=== PATIENT | female | born 1930 | race Caucasian/White ===

== ENCOUNTER 2018-12-27 20:25 | Inpatient (IN) ==
[2018-12-27 21:24] LABS: Hematocrit 42.9 % (35.3-44.9); Hemoglobin 14.1 g/dL (11.5-15.4); Mean Corpuscular HGB Conc 32.9 g/dL (31.6-35.5); Mean Corpuscular Hemoglobin 30.1 pg (28.0-33.3); Mean Corpuscular Volume 91.5 fL (83.0-100.0); Platelet Count 270 K/mcL (140-400); Red Blood Count 4.69 M/mcL (3.82-4.97); Red Cell Distribution Width 13.7 % (11.5-14.5)
[2018-12-27 21:43] LABS: Calcium 8.5 mg/dL (8.6-10.3); Potassium 4.2 mEq/L (3.5-5.1)
[2018-12-27] MEDS ORDERED: 0.9 % Sodium Chloride 500 ML IVC ONE ×2 (21:51→22:04)
--- NOTE | 2018-12-27 21:58 | Emergency Department Note ---
Disposition Clinical Impression: Dehydration, Weakness Disposition: Admitted As Inpatient Condition: Fair Time of Disposition: 22:26 General Adult HPI - General Chief complaint: ED Weakness Stated complaint: Weakness Time Seen by Provider: 12/27/18 20:55 Source: patient, family Limitations: no limitations Nursing Notes Reviewed: Yes Vital Signs Reviewed: Yes - History of Present Illness HPI Narrative: 88 yo female presents to the Emergency department with family with the complaint of increasing weakness over the past 5 weeks. She has a history of CHF with a defibrillator/pacemaker and takes levothyroxine. She has not been taking her medications for the past few days due to weakness. She denies chest pain but admits to shortness of breath. She denies fevers, abdominal pain, nausea, vomiting, and diarrhea. Pain Scale: 0 - Related Data Home Medications Medication Instructions Recorded Confirmed RX: Calcium Carbonate 500 mg PO DAILY 06/24/15 04/30/16 RX: Cholecalciferol (D-3) 5,000 unit PO DAILY 06/24/15 04/30/16 RX: Metoprolol XL (24 HR) Succ 12.5 mg PO DAILY 06/24/15 04/30/16 [Toprol XL] RX: Spironolactone 12.5 mg PO DAILY 06/24/15 04/30/16 RX: TraMADol [Ultram] 50 mg PO Q6HR PRN 06/24/15 04/30/16 RX: Warfarin [Coumadin] 1 tab PO 4XW 06/24/15 04/30/16 RX: Potassium Chloride 10 meq PO QPM 07/26/15 04/30/16 RX: Zinc Sulfate 220 mg PO QAM 07/26/15 04/30/16 RX: Bumetanide [Bumex] 1 mg PO 3XW 04/30/16 04/30/16 RX: Warfarin [Coumadin] 2 mg PO 3XW 04/30/16 04/30/16 Previous Rx's Medication Instructions Recorded RX: Bumetanide [Bumex] 0.5 mg PO 3XW #15 tablet 06/30/15 RX: Digoxin [Lanoxin] 0.125 mg PO QOD #15 tablet 06/30/15 RX: Isosorbide MONOnitrate (24 HR) 30 mg PO QPM #30 tab.er.24h 06/30/15 [Imdur] RX: Levothyroxine [Synthroid] 125 mcg PO 0630 #30 tablet 06/30/15 RX: Valsartan [Diovan] 40 mg PO DAILY #30 06/30/15 Allergies Allergy/AdvReac Type Severity Reaction Status Date / Time lisinopril Allergy Severe Swelling Verified 12/27/18 20:31 of Lip/Tongue/Throat Penicillins [PCN] Allergy Mild Itching Verified 12/27/18 20:31 egg Allergy Rash Verified 12/27/18 20:31 ciprofloxacin [From Cipro] AdvReac Mild Diarrhea Verified 12/27/18 20:31 milk AdvReac Mild Rash Verified 12/27/18 20:31 All systems ED: reviewed and negative except as stated. Review of Systems: As Per HPI Constitutional: Reports: weakness. Denies: fever, chills ENT ED: Denies: throat pain Cardiovascular: Reports: dyspnea on exertion. Denies: chest pain, palpitations, orthopnea, edema, syncope Respiratory: Reports: dyspnea. Denies: cough, wheezes Gastrointestinal: Denies: abdominal pain, nausea, vomiting, diarrhea Genitourinary: Denies: urgency, dysuria, frequency Musculoskeletal: Denies: back pain, neck pain Integumentary: Denies: rash Neurological: Reports: weakness. Denies: headache, numbness, paresthesias Endocrine: Reports: fatigue Past Medical History - Past Medical History Medical history: Reports: arthritis, atrial fibrillation, cardiomyopathy, CHF, coronary artery disease, DVT, GERD, hyperlipidemia, hypertension, osteoporosis, thyroid disease Surgical history: Reports: hip replacement, hysterectomy, pacemaker/AICD, other Psychiatric history: Reports: no psych history - Social History Smoking Status: Former smoker Smokeless Tobacco Status: No Alcohol use: Reports: none Drug use: Reports: none Physical Exam - General Limitations: no limitations General appearance: alert - Head Head exam: atraumatic, normocephalic - Eye Eye exam: Present: normal appearance, PERRL, EOMI - ENT ENT exam: mucous membranes dry - Neck Neck exam: Present: normal inspection. Absent: tenderness, lymphadenopathy - Chest Chest inspection: Present: normal inspection, symmetric chest wall rise. Absent: tenderness, rash - Respiratory Respiratory exam: Present: other (rhonchi heard in right lung landry) - Cardiovascular Cardiovascular exam: Present: regular rate, irregular rhythm - Abdominal Exam Abdominal exam: Present: soft, Non-Tender. Absent: distention, guarding, rebound, rigidity - Extremities Exam Extremities exam: Present: pedal edema (right leg>left. 2+ pitting edema) - Neurological Exam Neurological exam: Present: alert - Psychiatric Psychiatric exam: Present: flat affect - Skin Skin exam: Present: warm, dry, intact Course Vital Signs Temperature 97.4 F L 12/27/18 20:31 Pulse Rate 62 12/27/18 20:31 Respiratory Rate 17 12/27/18 20:31 Blood Pressure 128/79 12/27/18 20:31 O2 Sat by Pulse Oximetry 95 12/27/18 20:31 Temperature 97.4 F L 12/27/18 20:31 Pulse Rate 67 12/27/18 22:02 Respiratory Rate 16 12/27/18 22:02 Blood Pressure 126/61 12/27/18 22:02 O2 Sat by Pulse Oximetry 98 12/27/18 22:02 Oxygen Delivery Oxygen Delivery Room Air Medical Decision Making - MDM Narrative Medical decision making narrative: This patient presents with worsening weakness for the past 5 weeks. We will obtain labs, urinalysis, CXR, EKG and give a 500ml fluid bolus. 2225 - lab work shows evidence of dehydration and hypothyroidism. We will admit to the hospital for rehydration and further treatment of her weakness. Dr. Shirley has accepted the patient. - Medical Records Medical records reviewed: Yes I reviewed the patient's medical records. - Lab Data Lab results reviewed: Yes I reviewed the patient's lab results. Result diagrams: 12/27/18 21:15 12/27/18 21:15 Lab Results 12/27/18 12/27/18 12/27/18 Range/Units 21:15 21:15 21:43 WBC 17.1 H (4.3-11.1) K/mcL RBC 4.69 (3.82-4.97) M/mcL Hgb 14.1 (11.5-15.4) g/dL Hct 42.9 (35.3-44.9) % MCV 91.5 (83.0-100.0) fL MCH 30.1 (28.0-33.3) pg MCHC 32.9 (31.6-35.5) g/dL RDW 13.7 (11.5-14.5) % Plt Count 270 (140-400) K/mcL MPV 10.0 (9.4-12.4) fL PT 38.6 H (9.4-12.1) Seconds INR 3.4 Sodium 138 (136-145) mEq/L Potassium 4.2 (3.5-5.1) mEq/L Chloride 105 (98-107) mEq/L Carbon Dioxide 23 (23-29) mEq/L BUN 38 H (8-23) mg/dL Creatinine 1.72 H (0.60-1.20) mg/dL Est GFR ( Amer) 34 L (> 60) Est GFR (Non-Af Amer) 28 L (> 60) BUN/Creatinine Ratio 22 (6-26) Glucose 98 (70-105) mg/dL Calculated Osmolality 295 (280-300) Calcium 8.5 L (8.6-10.3) mg/dL TSH 8.755 H (0.340-5.600) mcIU/mL - Radiology Data Radiology results reviewed: Yes I reviewed the patient's radiology results. - EKG Data EKG #1 EKG attestation: Yes I reviewed and interpreted this EKG. EKG results narrative: EKG obtained at 2126 on 12/27/2018 HR 71 bpm, QRS duration 102, QT 332, QTc [address] any significant ST segment elevations or depressions. Unchanged when compared to previous EKG dated 04/30/2016 Attestation Statement - Attestation Attestation: DR Lockett note: Pt seen in conjunction w/ resident Dr Tina Stover; Please see her charting for complete documentation; I spent face to face time w/ the pt and agree w/ e pt's treatment and disposition; progressive generalized weakness for 3 days. No fever no pain no vomiting or diarrhea. Vital signs stable. Prior diuretics were given daily until a few days ago. Was able to Walk Today Due To the Weakness. bun, creatine noted; inr checked 2 days ago as well;
[2018-12-27 22:02] LABS: Thyroid Stimulating Hormone 8.755 mcIU/mL (0.340-5.600)
[2018-12-27 22:15] LABS: INR 3.4; Prothrombin Time 38.6 Seconds (9.4-12.1)
[2018-12-27] MEDS ORDERED: traMADol 50 MG TABLET PO PRN (23:33)
[2018-12-27] MEDS ORDERED: Furosemide 40 MG/4 ML VIAL IVP ONE (23:34)
[2018-12-27] MEDS ORDERED: Levothyroxine Sodium 100 MCG VIAL IVP STA (23:34)
[2018-12-27] MEDS ORDERED: Albumin 25% 25gram/100mL 25 GM/100 ML IV.SOLN IVPB ONE (23:34)
[2018-12-27] MEDS ORDERED: Naloxone 0.4 MG/ML INJ IVP PRN (23:54)
[2018-12-27] MEDS ORDERED: Acetaminophen 325 MG TABLET PO PRN (23:54)
--- NOTE | 2018-12-27 23:57 | Internal Med History&Physical ---
Date of Encounter: 12/27/18 Time of Encounter: 23:55 Internal Medicine - H&P: HPI Chief complaint: fatigue Admitted From: Home Plans for Post Hospital Care: Home History of present illness: Romy Mejia is an 88-year-old woman known to have congestive heart failure with ICD placed in 2008 and replaced in 2016, atrial fibrillation, peripheral artery disease and hypothyroidism brought in by family with a complaint of increasing weakness over the past 5 weeks. She states that she has not been able to take her medications due to notable fatigue. Though she denied chest pain she admitted to increasing shortness of breath. She denied any fever, abdominal pain, nausea, vomiting and diarrhea. Due to concern for dehydration she was given a 500 mL fluid bolus initially. Labs done subsequently revealed a leukocyte count of 17.1, hemoglobin 14.1, INR 3.4, creatinine 1.72 inches higher than her baseline BNP of greater than 5000 and a TSH of 8.76. S x-ray is reviewed by me shows cardiomegaly, pulmonary vascular congestion and bilateral pleural effusions. She is now admitted for further care. On my assessment, she tells me she started going downhill after her levothyroxine dose was lowered about 5 weeks ago. She started feeling more fatigued with loss of appetite and apathy. It continued to progress and subsequently worsened in the last 2 weeks when she was prescribed a 1 week course of steroids for a suspected gout attack. Her decline made her stop taking her medications all together including diuretics making her legs swell up and her thyroid substitute. Past Med Surg Social Fam HX - Past Medical History Medical history: arthritis, atrial fibrillation, cardiomyopathy, CHF, coronary artery disease, DVT, GERD, hyperlipidemia, hypertension, osteoporosis, thyroid disease Additional medical history: Osteoporosos, Psychiatric history: no psych history - Past Surgical History Surgical History: hip replacement, hysterectomy, pacemaker/AICD, other Additional surgical history: BLADDER REPAIR. INGUINAL HERNIA. FOOT SURGERY - Social History Smoking Status: Former smoker Smokeless Tobacco Status: No Alcohol use: none Drug use: none Internal Medicine - H&P: Meds Calcium Carbonate 500 mg PO DAILY 06/24/15 [History] Cholecalciferol (D-3) 5,000 unit PO DAILY 06/24/15 [History] Metoprolol XL (24 HR) Succ [Toprol XL] 12.5 mg PO DAILY 08/01/15 [History] Spironolactone 12.5 mg PO DAILY 06/24/15 [History] TraMADol [Ultram] 50 mg PO Q6HR PRN 06/24/15 [History] Warfarin [Coumadin] 1 tab PO 4XW 06/24/15 [History] Bumetanide [Bumex] 0.5 mg PO 3XW #15 tablet 06/30/15 [Rx] Digoxin [Lanoxin] 0.125 mg PO QOD #15 tablet 06/30/15 [Rx] Isosorbide MONOnitrate (24 HR) [Imdur] 30 mg PO QPM #30 tab.er.24h 06/30/15 [Rx] Levothyroxine [Synthroid] 125 mcg PO 0630 #30 tablet 06/30/15 [Rx] Valsartan [Diovan] 40 mg PO DAILY #30 06/30/15 [Rx] Potassium Chloride 10 meq PO QPM 07/26/15 [History] Zinc Sulfate 220 mg PO QAM 07/26/15 [History] Bumetanide [Bumex] 1 mg PO 3XW 04/30/16 [History] Warfarin [Coumadin] 2 mg PO 3XW 04/30/16 [History] Allergy/AdvReac Type Severity Reaction Status Date / Time lisinopril Allergy Severe Swelling Verified 12/27/18 20:31 of Lip/Tongue/Throat Penicillins [PCN] Allergy Mild Itching Verified 12/27/18 20:31 egg Allergy Rash Verified 12/27/18 20:31 ciprofloxacin [From Cipro] AdvReac Mild Diarrhea Verified 12/27/18 20:31 milk AdvReac Mild Rash Verified 12/27/18 20:31 All Systems PM: A 10-system review of systems was performed and is negative for pertinent findings except as documented above in the HPI.Family history reviewed and found non-contributory. - Constitutional Vitals: Temp Pulse Resp BP Pulse Ox 97.5 F L 80 14 136/71 96 12/27/18 23:40 12/27/18 23:40 12/27/18 23:40 12/27/18 23:40 12/27/18 23:40 Exam: Vitals: Reviewed General: Cachectic and emaciated elderly woman lying in bed in no acute distress but notably asthenic Skin: Dry, warm. HEENT: Dry mucous membranes. No conjunctivae pallor. Extensive oropharnygeal thrush is evident. Neck: No lymphadenopathy. No JVD. No carotid bruits. No palpable thyroid. Chest: Diminished thoracic expansion. Reduced breath sounds bilaterally. Heart: Normal S1 & S2; rhythmic. Abdomen: Mild distension with inferior wall edema. Soft and non-tender to palpation. No peritoneal reaction. Extremities: 2+ pitting edema of both legs. No clubbing, cyanosis. No calf tenderness. Normal distal pulses. Neurological: Awake, alert and oriented to person, place and time. No focal deficits. Psych: Affect appropriate. Internal Med - H&P Results - Labs CBC & Chem 7: 12/27/18 21:15 12/27/18 21:15 Labs: Short CBC 12/27/18 Range/Units 21:15 WBC 17.1 H (4.3-11.1) K/mcL Hgb 14.1 (11.5-15.4) g/dL Hct 42.9 (35.3-44.9) % Plt Count 270 (140-400) K/mcL BMP 12/27/18 21:15 Sodium 138 Potassium 4.2 Chloride 105 Carbon Dioxide 23 BUN 38 H Creatinine 1.72 H Glucose 98 Calcium 8.5 L - Impressions ITS Impressions Chest X-Ray 12/27/18 21:28 IMPRESSION: Features of heart failure, including cardiomegaly with bilateral pleural effusions and edema. D/ / Jimy Bass / Jimy Bass Interpreting Provider: Jimy Bass - Assessment and plan (1) Hypothyroid Current Visit: Yes Status: Chronic Assessment and plan: The etiology of her hypothyroid condition is unclear however her son who is evidently at least in his 60s says she has been taking supplementation before he was born. She has both a biochemical (TSH 8.76) and clinically (fatigue, low heart rate, low body temperatures) hypothyroid state and this is likely secondary to the decrease in dose that happened 5 weeks ago which correlates with the onset of her general decline. Will resume her previous dose of levothyroxine 125mcg/daily but given her current severe state will start with IV formulation dosed at 100mcg which would equate the oral 125mcg dose. She will require continued monitoring. Qualifiers: Hypothyroidism type: unspecified Qualified Code(s): E03.9 - Hypothyroidism, unspecified (2) CHF (congestive heart failure) Current Visit: Yes Status: Acute Assessment and plan: The patient is seen to have significant pulmonary edema and possibly even per icardial effusion based on her x-ray appearance. On physical exam she has notable edema. Although she appears intravascularly depleted, she has extensive fluid retention in her interstitium. Will administer a dose of 40mg furosemide with a 25gr bag of albumin tonight. 20mg BID will be continued as of tomorrow. Continue beta arash therapy. ARB currently on hold for MINE but should be resumed once able. Will order a TTE for further evaluation. ICD already in place for primary prevention. Qualifiers: Heart failure type: systolic Heart failure chronicity: acute on chronic Qualified Code(s): I50.23 - Acute on chronic systolic (congestive) heart failure (3) Chronic a-fib Current Visit: Yes Status: Chronic Assessment and plan: Currently rate controlled but seen to have a supratherapeutic INR. Warfarin will remain on hold for now as we continue to check her levels. Telemetry monitoring ordered. (4) MINE (acute kidney injury) Current Visit: Yes Status: Acute Assessment and plan: Concern that it may be secondary to intravascular depletion while remained volume overloaded in her interstitium. Will give a trial of furosemide and albumin. Vo catheter ordered for output measurement. Repeat BMP in the morning. ARB currently on hold but should be resumed once feasible. (5) Oral thrush Current Visit: Yes Status: Acute Assessment and plan: Evident on physical exam and she does she report difficulty swallowing and soreness because of this. Will start oral clotrimazole troches 5x/day for now. S he will require a 14 day course. May be changed to fluconazole 100mg daily for easier dosing however I find that clotrimazole has less of an effect on warfarin than fluconazole although still present to a degree. (6) Cachexia Current Visit: Yes Status: Acute Assessment and plan: Has evidence of protein-caloric malnutrition and will benefit from nutritional support as tolerated especially once we are able to improve her general state of health. Consult requested for supplements. (7) Weakness Current Visit: Yes Status: Acute Assessment and plan: Likely secondary to her malnutrition, hypothyroid state and heart failure. Will attempt to manage the underlying conditions as detailed above. (8) Leukocytosis Current Visit: Yes Status: Acute Assessment and plan: There are currently no overt signs of infection present. I have concern that it may be secondary to the high dose course of steroids she recently received. All the same will continue to monitor. Will also check a UA for certainty as this could be a potential source of infection and contributing to her malaise. Qualifiers: Leukocytosis type: unspecified Qualified Code(s): D72.829 - Elevated white blood cell count, unspecified (9) Advanced directives, counseling/discussion Current Visit: Yes Status: Acute Assessment and plan: On my discussion with the patient she had initially discussed her wish to not have resuscitation efforts and ventilator mechanics performed if the need were to be however her family members in the room convinced her otherwise and she rescinded the decision, now expressing her wish to be full code. I explained to the family members that such efforts in a patient as delicate as she is would likely do more harm than benefit. At this time she remains competent and her wishes will be followed. - Time Spent With Patient Total time spent is greater than 50% in coordination of care (as documented) at patient's floor/unit and/or counseling patient: Greater than 35 minutes
[2018-12-28 03:16] LABS: Bilirubin,Urine Small (Negative); Blood,Urine Large (Negative); Clarity,Urine Cloudy (Clear); Color,Urine Dark Yellow (Yellow); Glucose,Urine (UA) Normal (Normal); Ketones,Urine Negative (Negative); Leukocyte Esterase,Urine Moderate (Negative); Nitrite,Urine Negative (Negative); Protein,Urine 100 mg/dL (Neg-Trace); Specific Gravity,Urine 1.015 (1.010-1.025); Urobilinogen,Urine Normal (Normal)
[2018-12-28 03:19] LABS: Bacteria,Urine Many per hpf (None-Few); Hyaline Casts,Urine None Seen per lpf (None-Few); RBC,Urine 30-50 per hpf (0-3); Squamous Epithelial Cell,Urine None Seen per lpf (None-Few); WBC,Urine 50-100 per hpf (0-3)
[2018-12-28] MEDS: Furosemide 20 MG/2 ML VIAL IVP SCH (08:40)
[2018-12-28] MEDS: Metoprolol XL (24 HR) Succ 25 MG TAB.ER.24H PO SCH (08:40)
[2018-12-28] MEDS: Spironolactone 25 MG TABLET PO SCH (08:40)
[2018-12-28 08:42] LABS: Basophils % 0.2 %; Eosinophils # 0.1 K/mcL (0.0-0.6); Eosinophils % 0.6 %; Hematocrit 46.4 % (35.3-44.9); Hemoglobin 14.3 g/dL (11.5-15.4); Immature Granulocytes % 0.4 % (0-4); Lymphocytes # 0.6 K/mcL (0.6-4.6); Lymphocytes % 4.4 %; Mean Corpuscular HGB Conc 30.8 g/dL (31.6-35.5); Mean Corpuscular Hemoglobin 29.4 pg (28.0-33.3); Mean Corpuscular Volume 95.5 fL (83.0-100.0); Mean Platelet Volume 10.4 fL (9.4-12.4); Monocytes # 0.6 K/mcL (0.0-1.3); Monocytes % 4.5 %; Neutrophils # 11.6 K/mcL (1.6-8.9); Platelet Count 208 K/mcL (140-400); Red Blood Count 4.86 M/mcL (3.82-4.97); Red Cell Distribution Width 13.8 % (11.5-14.5); Segmented Neutrophils % 89.9 %
[2018-12-28 08:47] LABS: INR 3.2
[2018-12-28 08:55] LABS: Albumin 3.6 g/dL (3.5-5.7); Albumin/Globulin Ratio 1.6 (1.1-2.2); Bilirubin,Direct 0.9 mg/dL (0.0-0.2); Bilirubin,Indirect 1.1 mg/dL (0.0-1.2); Calcium 8.6 mg/dL (8.6-10.3); Globulin 2.3 g/dL (2.4-3.5); Potassium 4.1 mEq/L (3.5-5.1); Total Protein 5.9 g/dL (6.4-8.9)
--- NOTE | 2018-12-28 15:15 | Internal Med Progress Note ---
Hospitalist Progress Note - Encounter Date of Encounter: 12/28/18 Time of Encounter: 15:10 - Subjective Interval History: Ms. Mejia is an 88-year-old woman known PMH of systolic congestive heart failure with ICD placed in 2008 and replaced in 2016, chronic atrial fibrillation, peripheral artery disease and hypothyroidism brought in by family with a complaint of increasing weakness over the past 5 weeks. She states that she has not been able to take her medications due to notable fatigue. Though she denied chest pain she admitted to increasing shortness of breath. Her BNP of greater than 5000 and a TSH of 8.76. X-ray shows cardiomegaly, pulmonary vascular congestion and bilateral pleural effusions. she was admitted in the hospital and placed her on gambling monitor and started her on IV Lasix. Her SOB and Leg swelling better today. She still feels weak and lethargic - Exam Vitals: Temp Pulse Resp BP Pulse Ox 97.4 F L 67 14 149/75 93 12/28/18 12:09 12/28/18 12:09 12/28/18 12:09 12/28/18 12:12/28/18 12:09 Exam: Gen: Alert, awake, Oriented to time,place and person Chest: Diminished breath sounds B/L, No wheezing, mild crackles, No rales Heart: S1S2+ Afib, No murmurs Abd: Soft, NT, BS +, No organomegaly Ext: trace edema, pulses are palpable, No calf tenderness Neuro : Benign findings Skin: No rash. - Assessment and Plan (1) Acute on chronic systolic (congestive) heart failure Current Visit: Yes Status: Acute Assessment and Plan: Reviewed her 2D Echo from 01/11 showed LVEF 20-25% Repeat 2D Echo now Improving her symptoms switched to PO Lasix Cont BB, ASA and Aldactone (2) Chronic a-fib Current Visit: Yes Status: Chronic Assessment and Plan: rate controlled with Metoprolol and Digoxin On Coumadin for anti coag.. INR @ 3.2 (3) Hypothyroid Current Visit: Yes Status: Chronic Assessment and Plan: TSH 8.76 Family stated she does have some adjustments with Synthroid med by her PCP lately which caused her current fatigue as per family Her TSH was very low on 11/30/18 @ 0.18 so will talk to PCP about those changes check T3 and T4 in AM started on Synthroid 100mcg now (4) Weakness Current Visit: Yes Status: Acute Assessment and Plan: Likely secondary to her malnutrition, hypothyroid state and heart failure. 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 Probably due to steroids improving now (8) Protein-calorie malnutrition, severe Current Visit: Yes Status: Acute Assessment and Plan: Severe PCM Ordered Prealbumin levels Beaming Machine Operator consulted (9) Failure to thrive Current Visit: Yes Status: Acute Assessment and Plan: See above - Time Spent with Patient Total time spent is greater than 50% in coordination of care (as documented) at patient's floor/unit and/or counseling patient: Internal Medicine: Result - Labs CBC & Chem 7: 12/28/18 08:29 12/28/18 08:29 Labs: Short CBC 12/27/18 12/28/18 Range/Units 21:15 08:29 WBC 17.1 H 12.9 H (4.3-11.1) K/mcL Hgb 14.1 14.3 (11.5-15.4) g/dL Hct 42.9 46.4 H (35.3-44.9) % Plt Count 270 208 (140-400) K/mcL Neutrophils # 11.6 H (1.6-8.9) K/mcL BMP 12/27/18 12/28/18 21:15 08:29 Sodium 138 138 Potassium 4.2 4.1 Chloride 105 107 Carbon Dioxide 23 20 L BUN 38 H 37 H Creatinine 1.72 H 1.81 H Glucose 98 117 H Calcium 8.5 L 8.6 Liver Function 12/28/18 Range/Units 08:29 Total Bilirubin 2.0 H (0.3-1.0) mg/dL Direct Bilirubin 0.9 H (0.0-0.2) mg/dL AST 53 H (13-39) Units/L ALT 19 (7-52) Units/L Alkaline Phosphatase 123 H (34-104) Units/L Albumin 3.6 (3.5-5.7) g/dL Urine 12/28/18 Range/Units 03:08 Urine Color Dark Yellow (Yellow) Urine Clarity Cloudy A (Clear) Urine pH 6.0 (5.0-8.0) pH Units Ur Specific [place] 1.015 (1.010-1.025) Urine Protein 100 H (Neg-Trace) mg/dL Urine Glucose (UA) Normal (Normal) mg/dL - ABG Interpretation ABG results: PT/INR, D-dimer PT 36.0 Seconds (9.4-12.1) H 12/28/18 08:29 - Impressions Impressions Chest X-Ray 12/27/18 21:28 IMPRESSION: Features of heart failure, including cardiomegaly with bilateral pleural effusions and edema. D/ / Jimy Bass / Jimy Bass Interpreting Provider: Jimy Bass Consult Discharge Plan - Plan Referrals: NONE,PCP [Primary Care Provider] - (3) Hypothyroid Qualifiers: Hypothyroidism type: unspecified Qualified Code(s): E03.9 - Hypothyroidism, unspecified (7) Leukocytosis Qualifiers: Leukocytosis type: unspecified Qualified Code(s): D72.829 - Elevated white blood cell count, unspecified
[2018-12-28] MEDS: traMADol 50 MG TABLET PO PRN ×2 (16:13→22:13)
[2018-12-28] MEDS: Isosorbide MONOnitrate (24 HR) 30 MG TAB.ER.24H PO SCH (16:13)
[2018-12-28] MEDS: *HR* Digoxin 0.125 MG TABLET PO SCH (17:05)
[2018-12-28] MEDS ORDERED: *HR* Warfarin 1 MG TABLET PO ONE (18:00)
[2018-12-28] MEDS ORDERED: Warfarin perPT PO PRN (18:00)
--- NOTE | 2018-12-28 21:55 | Event Note ---
Date of Encounter: 12/28/18 Time of Encounter: 21:44 Alerted by patient's nurse RACHEL Little that patient was refusing IV Lasix because it made her feel like the top of her head was being blown off and anxious. Patient admitted with CHF with BNP greater than 5000. Patient states she will not take IVP anymore. IVP lasix DCd and 20 mg BID ordered which is pts. home dosing. Nurse instructed to continue monitoring pt. and output closely and notify me immediately of any adverse changes.
[2018-12-28] MEDS: Furosemide 20 MG TABLET PO SCH (22:12)
[2018-12-29] MEDS: Furosemide 20 MG/2 ML VIAL IVP SCH (01:14)
[2018-12-29 07:44] LABS: Basophils % 0.1 %; Eosinophils # 0.1 K/mcL (0.0-0.6); Eosinophils % 0.7 %; Hematocrit 44.6 % (35.3-44.9); Hemoglobin 14.4 g/dL (11.5-15.4); Immature Granulocytes % 0.4 % (0-4); Lymphocytes # 0.8 K/mcL (0.6-4.6); Lymphocytes % 5.6 %; Mean Corpuscular HGB Conc 32.3 g/dL (31.6-35.5); Mean Corpuscular Hemoglobin 29.6 pg (28.0-33.3); Mean Corpuscular Volume 91.6 fL (83.0-100.0); Monocytes # 0.8 K/mcL (0.0-1.3); Monocytes % 5.4 %; Neutrophils # 12.1 K/mcL (1.6-8.9); Platelet Count 291 K/mcL (140-400); Red Blood Count 4.87 M/mcL (3.82-4.97); Red Cell Distribution Width 13.7 % (11.5-14.5); Segmented Neutrophils % 87.8 %
[2018-12-29] MEDS: Spironolactone 25 MG TABLET PO SCH (07:48)
[2018-12-29 07:49] LABS: INR 2.6; Prothrombin Time 29.8 Seconds (9.4-12.1)
[2018-12-29] MEDS: Furosemide 20 MG TABLET PO SCH ×2 (07:49→17:16)
[2018-12-29] MEDS: Metoprolol XL (24 HR) Succ 25 MG TAB.ER.24H PO SCH (07:49)
[2018-12-29] MEDS: predniSONE 20 MG TABLET PO SCH (07:49)
[2018-12-29 07:52] LABS: Albumin 3.4 g/dL (3.5-5.7); Albumin/Globulin Ratio 1.5 (1.1-2.2); Bilirubin,Total 1.5 mg/dL (0.3-1.0); Calcium 8.8 mg/dL (8.6-10.3); Globulin 2.3 g/dL (2.4-3.5); Magnesium 1.8 mg/dL (1.6-2.6); Potassium 3.5 mEq/L (3.5-5.1); Total Protein 5.7 g/dL (6.4-8.9)
[2018-12-29 08:01] LABS: Triiodothyronine (T3) Free 1.76 pg/mL (2.50-3.90)
--- NOTE | 2018-12-29 10:11 | Internal Med Progress Note ---
Hospitalist Progress Note - Encounter Date of Encounter: 12/29/18 Time of Encounter: 09:30 - Subjective Interval History: Ms. Mejia is an 88-year-old woman known PMH of systolic congestive heart failure with ICD placed in 2008 and replaced in 2016, chronic atrial fibrillation, peripheral artery disease and hypothyroidism brought in by family with a complaint of increasing weakness over the past 5 weeks. She states that she has not been able to take her medications due to notable fatigue. Though she denied chest pain she admitted to increasing shortness of breath. Her BNP of greater than 5000 and a TSH of 8.76. X-ray shows cardiomegaly, pulmonary vascular congestion and bilateral pleural effusions. she was admitted in the hospital and placed her on nurse monitoring and started her on IV Lasix. Her SOB and Leg swelling better today. She still feels weak and lethargic..No events over night - Exam Vitals: Temp Pulse Resp BP Pulse Ox 97.4 F L 89 15 138/81 91 12/29/18 06:25 12/29/18 06:25 12/29/18 06:25 12/29/18 06:25 12/29/18 06:25 Exam: Gen: Alert, awake, Oriented to time,place and person Chest: Diminished breath sounds B/L, No wheezing, mild crackles, No rales Heart: S1S2+ Afib, No murmurs Abd: Soft, NT, BS +, No organomegaly Ext: trace edema, pulses are palpable, No calf tenderness Neuro : Benign findings Skin: No rash. - Assessment and Plan (1) Acute on chronic systolic (congestive) heart failure Current Visit: Yes Status: Acute Assessment and Plan: Reviewed her 2D Echo from 01/11 showed LVEF 20-25% Repeat 2D Echo - P Improving her symptoms Cont PO Lasix Strict I & O Cont BB, ASA and Aldactone (2) Chronic a-fib Current Visit: Yes Status: Chronic Assessment and Plan: rate controlled with Metoprolol and Digoxin On Coumadin for anti coag.. INR @ 2.6 (3) Hypothyroid Current Visit: Yes Status: Chronic Assessment and Plan: TSH 8.76 Family stated she does have some adjustments with Synthroid med by her PCP lately which caused her current fatigue as per family Her TSH was very low on 11/30/18 @ 0.18 Free T3 @ 1.76 and T4 @ 1.16 Cont Synthroid 100mcg now Will update PCP about these changes (4) Weakness Current Visit: Yes Status: Acute Assessment and Plan: Likely secondary to her malnutrition, hypothyroid state and heart failure. 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 Probably due to steroids will stop steroids now since she finished recommended course as an out pt (8) Protein-calorie malnutrition, severe Current Visit: Yes Status: Acute Assessment and Plan: Severe PCM Prealbumin levels -11.1 Case Manager consulted (9) Failure to thrive Current Visit: Yes Status: Acute Assessment and Plan: PT / OT eval May need ECF placement Will talk to family - Time Spent with Patient Total time spent is greater than 50% in coordination of care (as documented) at patient's floor/unit and/or counseling patient: Internal Medicine: Result - Labs CBC & Chem 7: 12/29/18 06:18 12/29/18 06:18 Labs: Short CBC 12/29/18 Range/Units 06:18 WBC 13.8 H (4.3-11.1) K/mcL Hgb 14.4 (11.5-15.4) g/dL Hct 44.6 (35.3-44.9) % Plt Count 291 (140-400) K/mcL Neutrophils # 12.1 H (1.6-8.9) K/mcL BMP 12/29/18 06:18 Sodium 140 Potassium 3.5 Chloride 105 Carbon Dioxide 23 BUN 39 H Creatinine 1.86 H Glucose 161 H Calcium 8.8 Liver Function 12/29/18 Range/Units 06:18 Total Bilirubin 1.5 H (0.3-1.0) mg/dL AST 20 (13-39) Units/L ALT 17 (7-52) Units/L Alkaline Phosphatase 121 H (34-104) Units/L Albumin 3.4 L (3.5-5.7) g/dL - ABG Interpretation ABG results: PT/INR, D-dimer PT 29.8 Seconds (9.4-12.1) H 12/29/18 06:18 Consult Discharge Plan - Plan Referrals: Ronal Smith MD [Partnered Physician] - 01/06/19 1:30 pm Richard Day MD [Partnered Physician] - 02/01/19 10:00 am Adiel Brown MD [Partnered Physician] - 02/05/19 11:30 am (3) Hypothyroid Qualifiers: Hypothyroidism type: unspecified Qualified Code(s): E03.9 - Hypothyroidism, unspecified (7) Leukocytosis Qualifiers: Leukocytosis type: unspecified Qualified Code(s): D72.829 - Elevated white blood cell count, unspecified
[2018-12-29] MEDS: Isosorbide MONOnitrate (24 HR) 30 MG TAB.ER.24H PO SCH (17:15)
[2018-12-29] MEDS ORDERED: *HR* Warfarin 1 MG TABLET PO ONE (18:00)
[2018-12-30 07:00] LABS: Hematocrit 45.6 % (35.3-44.9); Hemoglobin 14.8 g/dL (11.5-15.4); Mean Corpuscular HGB Conc 32.5 g/dL (31.6-35.5); Mean Corpuscular Hemoglobin 29.4 pg (28.0-33.3); Mean Corpuscular Volume 90.5 fL (83.0-100.0); Mean Platelet Volume 10.7 fL (9.4-12.4); Platelet Count 247 K/mcL (140-400); Red Blood Count 5.04 M/mcL (3.82-4.97); Red Cell Distribution Width 13.8 % (11.5-14.5)
[2018-12-30 07:11] LABS: INR 2.3
[2018-12-30 07:22] LABS: Albumin 3.1 g/dL (3.5-5.7); Albumin/Globulin Ratio 1.4 (1.1-2.2); Bilirubin,Total 1.1 mg/dL (0.3-1.0); Calcium 8.7 mg/dL (8.6-10.3); Globulin 2.2 g/dL (2.4-3.5); Potassium 3.4 mEq/L (3.5-5.1); Total Protein 5.3 g/dL (6.4-8.9)
[2018-12-30] MEDS: Spironolactone 25 MG TABLET PO SCH (09:16)
[2018-12-30] MEDS: *HR* Digoxin 0.125 MG TABLET PO SCH (09:17)
[2018-12-30] MEDS: Metoprolol XL (24 HR) Succ 25 MG TAB.ER.24H PO SCH (09:17)
[2018-12-30] MEDS: predniSONE 20 MG TABLET PO SCH (09:18)
[2018-12-30] MEDS: Furosemide 20 MG TABLET PO SCH ×2 (09:18→18:40)
[2018-12-30] MEDS: traMADol 50 MG TABLET PO PRN ×2 (09:29→21:13)
--- NOTE | 2018-12-30 13:15 | Internal Med Progress Note ---
Hospitalist Progress Note - Encounter Date of Encounter: 12/30/18 Time of Encounter: 11:45 - Subjective Interval History: Ms. Mejia is an 88-year-old woman known PMH of systolic congestive heart failure with ICD placed in 2008 and replaced in 2016, chronic atrial fibrillation, peripheral artery disease and hypothyroidism brought in by family with a complaint of increasing weakness over the past 5 weeks. She states that she has not been able to take her medications due to notable fatigue. Though she denied chest pain she admitted to increasing shortness of breath. Her BNP of greater than 5000 and a TSH of 8.76. X-ray shows cardiomegaly, pulmonary vascular congestion and bilateral pleural effusions. she was admitted in the hospital and placed her on cardiac rehabilitation specialist and started her on IV Lasix. Her SOB and Leg swelling better today. She still feels weak and lethargic. She denied any CP. No events over night - Exam Vitals: Temp Pulse Resp BP Pulse Ox 97.5 F L 61 15 132/83 97 12/30/18 11:22 12/30/18 11:22 12/30/18 11:22 12/30/18 11:22 12/30/18 11:22 Exam: Gen: Alert, awake, Oriented to time,place and person Chest: Diminished breath sounds B/L, No wheezing, mild crackles, No rales Heart: S1S2+ Afib, No murmurs Abd: Soft, NT, BS +, No organomegaly Ext: trace edema, pulses are palpable, No calf tenderness Neuro : Benign findings Skin: No rash. - Assessment and Plan (1) Acute on chronic systolic (congestive) heart failure Current Visit: Yes Status: Acute Assessment and Plan: Reviewed her 2D Echo from 01/11 showed LVEF 20-25% Repeat 2D Echo - showed LVEF @ 20%, severe global LV systolic dysfunction Improving her symptoms Cont PO Lasix Strict I & O Cont BB, ASA and Aldactone (2) Chronic a-fib Current Visit: Yes Status: Chronic Assessment and Plan: rate controlled with Metoprolol and Digoxin On Coumadin for anti coag.. INR @ 2.3 (3) Hypothyroid Current Visit: Yes Status: Chronic Assessment and Plan: TSH 8.76 Family stated she does have some adjustments with Synthroid med by her PCP lately which caused her current fatigue as per family Her TSH was very low on 11/30/18 @ 0.18 Free T3 @ 1.76 and T4 @ 1.16 Started Synthroid 100mcg initially.. Will inc to 125mcg tomorrow Will update PCP about these changes (4) Weakness Current Visit: Yes Status: Acute Assessment and Plan: Likely secondary to her malnutrition, hypothyroid state and heart failure. 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 Probably due to steroids will stop steroids now since she finished recommended course as an out pt (8) Protein-calorie malnutrition, severe Current Visit: Yes Status: Acute Assessment and Plan: Severe PCM Prealbumin levels -11.1 Preschool Education Director consulted (9) Failure to thrive Current Visit: Yes Status: Acute Assessment and Plan: PT / OT eval May need ECF placement Will talk to family - Time Spent with Patient Total time spent is greater than 50% in coordination of care (as documented) at patient's floor/unit and/or counseling patient: Internal Medicine: Result - Labs CBC & Chem 7: 12/30/18 05:58 12/30/18 05:58 Labs: Short CBC 12/30/18 Range/Units 05:58 WBC 16.8 H (4.3-11.1) K/mcL Hgb 14.8 (11.5-15.4) g/dL Hct 45.6 H (35.3-44.9) % Plt Count 247 (140-400) K/mcL BMP 12/30/18 05:58 Sodium 141 Potassium 3.4 L Chloride 106 Carbon Dioxide 23 BUN 39 H Creatinine 1.83 H Glucose 117 H Calcium 8.7 Liver Function 12/30/18 Range/Units 05:58 Total Bilirubin 1.1 H (0.3-1.0) mg/dL AST 16 (13-39) Units/L ALT 13 (7-52) Units/L Alkaline Phosphatase 106 H (34-104) Units/L Albumin 3.1 L (3.5-5.7) g/dL - ABG Interpretation ABG results: PT/INR, D-dimer PT 26.0 Seconds (9.4-12.1) H 12/30/18 05:58 Consult Discharge Plan - Plan Referrals: Ronal Smith MD [Partnered Physician] - 01/06/19 1:30 pm Richard Day MD [Partnered Physician] - 02/01/19 10:00 am Adiel Brown MD [Partnered Physician] - 02/05/19 11:30 am (3) Hypothyroid Qualifiers: Hypothyroidism type: unspecified Qualified Code(s): E03.9 - Hypothyroidism, unspecified (7) Leukocytosis Qualifiers: Leukocytosis type: unspecified Qualified Code(s): D72.829 - Elevated white blood cell count, unspecified
[2018-12-30] MEDS ORDERED: *HR* Warfarin 1 MG TABLET PO ONE (18:00)
[2018-12-30] MEDS: Isosorbide MONOnitrate (24 HR) 30 MG TAB.ER.24H PO SCH (18:43)
--- NOTE | 2018-12-30 20:48 | Electrocardiograph Report ---
[address] [place], [place] [address] Test Date: 2018-12-27 Pat Name: Romy Mejia Department: EXAM5 Room: 3B Gender: F Kennel Manager: : [id number] Requested By: Too Lockett Order Number: [id number] Reading MD: Forest Baker Measurements Intervals Beattie Rate: 71 P: NM: QRS: -60 QRSD: 102 T: 136 QT: 332 QTc: 361 Interpretive Statements Atrial fibrillation LAD, consider left anterior fascicular block Anteroseptal infarct, old Nonspecific repol abnormality, diffuse leads Electronically Signed On 12-30-2018 20:46:17 EST by Forest Baker
[2018-12-31 05:58] LABS: INR 3.3; Prothrombin Time 37.2 Seconds (9.4-12.1)
[2018-12-31] MEDS: Furosemide 20 MG TABLET PO SCH (07:55)
[2018-12-31] MEDS: Spironolactone 25 MG TABLET PO SCH (09:26)
[2018-12-31] MEDS: Metoprolol XL (24 HR) Succ 25 MG TAB.ER.24H PO SCH (09:29)
[2018-12-31 12:26] VITALS: BP 135/61
--- NOTE | 2018-12-31 13:57 | Discharge Summary ---
- NOTES TO OUTPATIENT PROVIDER Notes to Outpatient Provider: Please follow up with PCP in one week. Please start taking levothyroxine 125 mg PO daily. Date of Encounter: 12/31/18 Time of Encounter: 13:51 - Discharge Diagnosis (1) Acute on chronic systolic (congestive) heart failure Priority: Primary Status: Acute (2) Weakness Priority: Primary Status: Acute (3) Chronic a-fib Priority: Secondary Status: Chronic (4) Hypothyroid Priority: Secondary Status: Chronic Qualifiers: Hypothyroidism type: unspecified Qualified Code(s): E03.9 - Hypothyroidism, unspecified (5) Advanced directives, counseling/discussion Priority: Secondary Status: Acute (6) MINE (acute kidney injury) Priority: Secondary Status: Acute (7) Leukocytosis Priority: Secondary Status: Acute Qualifiers: Leukocytosis type: unspecified Qualified Code(s): D72.829 - Elevated white blood cell count, unspecified (8) Protein-calorie malnutrition, severe Priority: Secondary Status: Acute (9) Failure to thrive Priority: Secondary Status: Acute Qualifiers: Failure to thrive age range: in adult Qualified Code(s): R62.7 - Adult failure to thrive Hospital course: Ms. Mejia is an 88-year-old woman known PMH of systolic congestive heart failure with ICD placed in 2008 and replaced in 2016, chronic atrial fibrillation, peripheral artery disease and hypothyroidism brought in by family with a complaint of increasing weakness over the past 5 weeks, as well as worsening shortness of breath and bilateral lower extremity edema. She states that she has not been able to take her medications due to notable fatigue. Though she denied chest pain she admitted to increasing shortness of breath. Her BNP of greater than 5000 and a TSH of 8.76. X-ray shows cardiomegaly, pulmonary vascular congestion and bilateral pleural effusions. she was admitted in the hospital and placed her on quality assurance monitor and started her on IV Lasix. Her SOB and Leg swelling improved slowly. Her TSH was very low on 11/30/18 @ 0.18, and now it was 8.76, Free T3 @ 1.76 and T4 @ 1.16. Family stated her PCP cut back on her syntrhoid dose a month ago since then her condition is declining. For now I increased her Synthroid to 125mcg PO Daily. Also talked to pt's PCP Dr. Paulino and updated him about dose changes as well as need for f/u thyroid function tests in 4 to 6 weeks. Pt's family too aware of this. Patient was evaluated with physical therapy/occupational therapy who recommend ECF placement. So will discharge her to ECF in a stable condition today - Time Spent with Patient Total time spent providing and/or coordinating discharge services: - Discharge Medications Prescriptions: Dronabinol [Marinol] 2.5 mg PO BIDLS 10 Days #20 capsule Levothyroxine [Synthroid] 125 mcg PO 0630 #30 tablet Home Medications: Calcium Carbonate/Vitamin D3 [Oyster Shell Calcium-Vit D Tab] 1 tab PO DAILY 12/28/18 [History] Cholecalciferol (D-3) [Vitamin D] 5,000 unit PO DAILY 12/28/18 [History] Digoxin [Lanoxin] 0.125 mg PO Q48H 12/28/18 [History] Fexofenadine HCl [Allergy Relief] 180 mg PO DAILY PRN 12/28/18 [History] Furosemide [Lasix] 20 mg PO BID PRN 12/28/18 [History] Isosorbide MONOnitrate [Isosorbide Mononitrate ER] 30 mg PO DAILY 12/28/18 [History] Losartan Potassium 50 mg PO DAILY 12/28/18 [History] Metoprolol Succinate [Toprol Xl] 25 mg PO DAILY 12/28/18 [History] Nut.tx.impaired Digest Fxn [Ensure Clear] 237 ml PO TID 12/28/18 [History] Omeprazole [PriLOSEC] 20 mg PO DAILY 12/28/18 [History] Potassium Chloride Elixir [Potassium Chloride] 20 meq PO DAILY 12/28/18 [History] Tramadol HCl [Ultram] 50 mg PO Q8H PRN 12/28/18 [History] Warfarin [Coumadin] 1 mg PO DAILY 12/28/18 [History] Clotrimazole [Mycelex Lucía] 10 mg MM 5XD lucía 12/31/18 [Rx] Dronabinol [Marinol] 2.5 mg PO BIDLS 10 Days #20 capsule 12/31/18 [Rx] Levothyroxine [Synthroid] 125 mcg PO 0630 #30 tablet 12/31/18 [Rx] Allergies/Adverse Reactions: Allergy/AdvReac Type Severity Reaction Status Date / Time lisinopril Allergy Severe Swelling Verified 12/27/18 20:31 of Lip/Tongue/Throat Penicillins [PCN] Allergy Mild Itching Verified 12/27/18 20:31 egg Allergy Rash Verified 12/27/18 20:31 ciprofloxacin [From Cipro] AdvReac Mild Diarrhea Verified 12/27/18 20:31 milk AdvReac Mild Rash Verified 12/27/18 20:31 Date of admission: 12/27/18 23:36 Primary care physician: PCP NONE Consults: 12/27/18 23:59 Consult to Nutrition [CONS] Routine Comment: Consulting Provider: NUTRITION Reason for Dietary Consult: PO Supplementation 12/28/18 09:16 Consult to Nurse Navigator [CONS] Routine Comment: CHF 12/28/18 09:17 Consult to Occupational Therapy [CONS] Routine Comment: Evaluate, develop and implement POC Reason for Consult: INCREASED WEAKNESS, DECONDITIONING Does patient have active BEDREST order?: No Is patient medically & hemodynamically stable?: Yes Consult to Physical Therapy [CONS] Routine Comment: Evaluate, develop and implement POC Reason for Consult: INCREASED WEAKNESS, DECONDITIONING Does patient have active BEDREST order?: No Is patient medically & hemodynamically stable?: Yes 12/31/18 09:50 Consult to Law Enforcement Director [CONS] Routine Reason for SW Consult: PLACEMENT TO SNF - Constitutional Vitals: Temp Pulse Resp BP Pulse Ox 97.7 F 58 15 135/61 98 12/31/18 12:25 12/31/18 12:25 12/31/18 12:25 12/31/18 12:25 12/31/18 12:25 General appearance: Present: A&O X 3, no acute distress, answers questions appropriately Exam: Gen: Alert, awake, Oriented to time,place and person Chest: Diminished breath sounds B/L, No wheezing, mild crackles, No rales Heart: S1S2+ Afib, No murmurs Abd: Soft, NT, BS +, No organomegaly Ext: trace edema, pulses are palpable, No calf tenderness Neuro : Benign findings Skin: No rash. - Patient Status Disposition: Transfer SNF Condition: Good Overall status at discharge: patient is back to baseline - Discharge Instructions Follow Up With: Ronal Smith MD [Partnered Physician] - 01/06/19 1:30 pm Richard Day MD [Partnered Physician] - 02/01/19 10:00 am Adiel Brown MD [Partnered Physician] - 02/05/19 11:30 am Forms: ED Satisfaction Letter - Diet and Activity Activity: as per physical therapy, increase activity as tolerated Diet: low salt diet
--- NOTE | 2018-12-31 14:36 | Physician Discharge Referral ---
ExtendedCare Referral Info Transfer To: ECF Provider in Charge after Transfer: PCP Institutional Level of Care: Skilled - Diagnosis (1) Acute on chronic systolic (congestive) heart failure Status: Acute (2) Weakness Status: Acute (3) Chronic a-fib Status: Chronic (4) Hypothyroid Status: Chronic (5) Advanced directives, counseling/discussion Status: Acute (6) MINE (acute kidney injury) Status: Acute (7) Leukocytosis Status: Acute (8) Protein-calorie malnutrition, severe Status: Acute (9) Failure to thrive Status: Acute - Transfer Medications Prescriptions: Dronabinol [Marinol] 2.5 mg PO BIDLS 10 Days #20 capsule Levothyroxine [Synthroid] 125 mcg PO 0630 #30 tablet Home Medications: Calcium Carbonate/Vitamin D3 [Oyster Shell Calcium-Vit D Tab] 1 tab PO DAILY 12/28/18 [History] Cholecalciferol (D-3) [Vitamin D] 5,000 unit PO DAILY 12/28/18 [History] Digoxin [Lanoxin] 0.125 mg PO Q48H 12/28/18 [History] Fexofenadine HCl [Allergy Relief] 180 mg PO DAILY PRN 12/28/18 [History] Furosemide [Lasix] 20 mg PO BID PRN 12/28/18 [History] Isosorbide MONOnitrate [Isosorbide Mononitrate ER] 30 mg PO DAILY 12/28/18 [History] Losartan Potassium 50 mg PO DAILY 12/28/18 [History] Metoprolol Succinate [Toprol Xl] 25 mg PO DAILY 12/28/18 [History] Nut.tx.impaired Digest Fxn [Ensure Clear] 237 ml PO TID 12/28/18 [History] Omeprazole [PriLOSEC] 20 mg PO DAILY 12/28/18 [History] Potassium Chloride Elixir [Potassium Chloride] 20 meq PO DAILY 12/28/18 [History] Tramadol HCl [Ultram] 50 mg PO Q8H PRN 12/28/18 [History] Warfarin [Coumadin] 1 mg PO DAILY 12/28/18 [History] Clotrimazole [Mycelex Amol] 10 mg MM 5XD amol 12/31/18 [Rx] Dronabinol [Marinol] 2.5 mg PO BIDLS 10 Days #20 capsule 12/31/18 [Rx] Levothyroxine [Synthroid] 125 mcg PO 0630 #30 tablet 12/31/18 [Rx] Allergies/Adverse Reactions: Allergy/AdvReac Type Severity Reaction Status Date / Time lisinopril Allergy Severe Swelling Verified 12/27/18 20:31 of Lip/Tongue/Throat Penicillins [PCN] Allergy Mild Itching Verified 12/27/18 20:31 egg Allergy Rash Verified 12/27/18 20:31 ciprofloxacin [From Cipro] AdvReac Mild Diarrhea Verified 12/27/18 20:31 milk AdvReac Mild Rash Verified 12/27/18 20:31 - Respiratory Orders Smoking Cessation: Smoking cessation has been advised. For more information, call the [place] Tobacco Quit Line at 6-048-JUKBNOW. CERTIFICATION: I certify that the transfer of the above named patient to an Extended Care Facility is necessary for the continuing treatment of the diagnosis listed. The above information is true and accurate reflection of patient's current condition. Confidential - Redisclosure prohibited without a patient's written consent.
== END 2018-12-31 15:20 | DRG 291 ==
LOC: 3BNU 20:25 → EMEROOARM 20:25 → 3BNU 23:23 → SUATTDRO 23:36
PROVIDERS: ADMIT Internal Medicine; ATTEND Family Medicine